=== PATIENT | male | born 1975 | race Caucasian/White ===

== ENCOUNTER → 2016-07-22 | Outpatient (CLI) | payer OTHER ==
--- NOTE | 2016-07-22 15:52 | XR ---
Lumbosacral spine HISTORY: Sciatica, radiculopathy 5 views of the lumbosacral spine No comparisons Lumbar vertebral bodies show spondylolysis at L5 which is possibly unilateral. Lumbar vertebral jennifer s show preserved height. Bone mineralization is maintained. Loss of disc height present at L4-5, L5-S 1. Sclerosis and posterior elements compatible with facet arthropathy. IMPRESSION: Spondylolysis L5, degenerative disc disease, consider lumbar MRI. Postop changes incident ally noted right hemipelvis.
== END | disposition home or self-care (01) ==
LOC: RADXRMAIN 10:37
PROVIDERS: ATTEND Physical Medicine & Rehabilitation
DX: M51.36 Other intervertebral disc degeneration, lumbar region (principal); M51.37 Other intervertebral disc degeneration, lumbosacral region; Z98.890 Other specified postprocedural states
CPT/HCPCS: 72110

== ENCOUNTER → 2019-09-20 | Outpatient (CLI) | payer BC ==
[2019-09-20 11:17] LABS: Basophils % (A) 1 %; Eosinophils # (A) 0.2 k/uL (0-0.7); Eosinophils % (A) 3 %; HCT 45.2 % (39.0-53.0); Lymphocytes # (A) 2.4 k/uL (1.0-4.8); Lymphocytes % (A) 27 %; MCH 30.9 pg (25.0-35.0); MCHC 33.2 g/dL (31.0-37.0); MCV 93.1 fL (80.0-100.0); Mean Platelet Volume 8.2; Monocytes # (A) 0.4 k/uL (0-1.0); Monocytes % (A) 5 %; Neutrophils # (A) 5.6 k/uL (1.3-7.7); Neutrophils % (A) 63 %; Platelet Count 254 k/uL (150-450); RBC 4.86 m/uL (4.30-5.90); RDW 13.2 % (11.5-15.5); WBC 8.9 k/uL (3.8-10.6)
[2019-09-20 16:13] LABS: % Iron Saturation 28.89 (15.00-50.00); African American GFR (CKD) 105.6 (60.0-200.0); Albumin 4.2 g/dL (3.80-4.90); Albumin/Globulin Ratio 1.68 (1.60-3.17); Anion Gap 11.2 mmol/L (4.00-12.00); Calcium 9.3 mg/dL (8.7-10.3); Carbon Dioxide 28.8 mmol/L (21.6-31.8); Chol/HDL Ratio 4.4; Globulin 2.5 g/dL (1.6-3.3); LDL Cholesterol,Calculated 85.8 mg/dL (0.0-131.0); Non-African American GFR(CKD) 91.1 (60.0-200.0); Potassium 4.6 mmol/L (3.5-5.5); Total Bilirubin 0.4 mg/dL (0.2-1.2); Total Protein 6.7 g/dL (6.2-8.2); Uric Acid 9.6 mg/dL (3.7-8.7); VLDL Calculation 57.2 mg/dL (5.00-40.00)
[2019-09-20 17:53] LABS: Hemoglobin A1C 8.2 % (4.0-6.0)
== END | disposition home or self-care (01) ==
LOC: LABWHC1 10:08
PROVIDERS: ATTEND Nurse Practitioner Adult Health
DX: G62.89 Other specified polyneuropathies (principal); R73.9 Hyperglycemia, unspecified; N52.9 Male erectile dysfunction, unspecified; E66.9 Obesity, unspecified; Z12.5 Encounter for screening for malignant neoplasm of prostate
CPT/HCPCS: 80061; 80053; 84443; 82607; 83540; 83550; 84550; 85025; 84402; 84403; 82306; 83036; 36415; G0103

== ENCOUNTER → 2019-09-20 | Outpatient (CLI) | payer BC ==
--- NOTE | 2019-09-20 10:23 | XR ---
EXAMINATION TYPE: XR ankle complete RT DATE OF EXAM: 09/20/2019 COMPARISON: NONE HISTORY: Pain FINDINGS: Three views of the ankle demonstrate the ankle mortise to be intact and symmetric. The joint spaces are preserved. The osseous structures are intact. There is a spur involving the Achilles tendon ximena ng the Achilles insertion and plantar surface. Soft tissue edema suggested. IMPRESSION: 1. No definite acute fracture or dislocation, if symptoms persist follow-up study in 7 to 10 days wou ld be suggested. 2. Soft tissue edema calcaneal spurring.
--- NOTE | 2019-09-20 10:25 | XR ---
EXAMINATION TYPE: XR foot complete RT DATE OF EXAM: 09/20/2019 COMPARISON: NONE HISTORY: Pain TECHNIQUE: Three views are submitted. FINDINGS: The osseous structures are intact. There is no acute fracture or dislocation. There is arthropathy of the first MTP joint with hypertrophic spurring and narrowing of the joint space. Calcaneal spurri ng noted.. IMPRESSION: 1. No acute fracture or dislocation. If symptoms persist, follow-up exam in 7 to 10 days could be ob tained. 2. Arthropathy first MTP joint. 3. Calcaneal spurring 4. Correlate for soft tissue edema
== END | disposition home or self-care (01) ==
LOC: RADXRMAIN 09:19
PROVIDERS: ATTEND Nurse Practitioner Adult Health
DX: M18.11 Unilateral primary osteoarthritis of first carpometacarpal joint, right hand (principal); M77.31 Calcaneal spur, right foot; M79.89 Other specified soft tissue disorders

== ENCOUNTER 2019-10-30 12:26 | Inpatient (IN) | payer BC ==
[2019-10-30] MEDS ORDERED: MORPHINE SULFATE 4 MG/ML SYRINGE IV STA (13:29)
[2019-10-30 13:30] LABS: Basophils % (A) 0 %; Eosinophils # (A) 0.3 k/uL (0-0.7); Eosinophils % (A) 3 %; HCT 50.7 % (39.0-53.0); HGB 16.3 gm/dL (13.0-17.5); Lymphocytes # (A) 2.3 k/uL (1.0-4.8); Lymphocytes % (A) 23 %; MCH 31.7 pg (25.0-35.0); MCHC 32.1 g/dL (31.0-37.0); Macrocytosis Slight; Monocytes # (A) 0.6 k/uL (0-1.0); Monocytes % (A) 6 %; Neutrophils # (A) 6.5 k/uL (1.3-7.7); Neutrophils % (A) 65 %; Platelet Count 223 k/uL (150-450); RBC 5.13 m/uL (4.30-5.90); RDW 14.8 % (11.5-15.5)
[2019-10-30 13:33] LABS: MCV 98.8 fL (80.0-100.0)
--- NOTE | 2019-10-30 13:39 | XR ---
EXAMINATION TYPE: XR chest 1V portable DATE OF EXAM: 10/30/2019 COMPARISON: NONE HISTORY: Suspected COVID-19 pneumonia TECHNIQUE: Single frontal view of the chest is obtained. FINDINGS: There is no focal air space opacity, pleural effusion, or pneumothorax seen. The cardiac silhouette size is within normal limits. The osseous structures are intact. IMPRESSION: 1. No definite infiltrate appreciated at this time. Strict clinical Correlation advised.
[2019-10-30 13:43] LABS: ALT 40 U/L (4-49); AST 31 U/L (17-59); African American GFR (CKD) >90 (>60 ml/min/1.73 sqM); Albumin 4.3 g/dL (3.5-5.0); Alkaline Phosphatase 58 U/L (38-126); Anion Gap 5 mmol/L; Blood Urea Nitrogen 9 mg/dL (9-20); C Reactive Protein 21.4 mg/L (<10.0); Calcium 8.9 mg/dL (8.4-10.2); Carbon Dioxide 36 mmol/L (22-30); Chloride 93 mmol/L (98-107); Glucose 281 mg/dL (74-99); Magnesium 1.7 mg/dL (1.6-2.3); Non-African American GFR(CKD) >90 (>60 ml/min/1.73 sqM); Potassium 4.3 mmol/L (3.5-5.1); Sodium 134 mmol/L (137-145); Total Bilirubin 0.6 mg/dL (0.2-1.3); Total Protein 7.5 g/dL (6.3-8.2)
--- NOTE | 2019-10-30 13:53 | ED ---
General Adult HPI - General Chief complaint: Dizziness Stated complaint: SOB, dizzy Time Seen by Provider: 10/30/19 12:28 Source: patient Mode of arrival: wheelchair Limitations: no limitations - History of Present Illness Initial comments: Dictation was produced using [employer] dictation software. please excuse any grammatical, word or spelling errors. This patient was cared for during a federal and state declared state of emergency secondary to Covid 19 Chief Complaint: 44-year-old male past medical history of diabetes, chronic pain presents with hypoxia History of Present Illness: 44-year-old male who states she's been feeling t ingly for the last 12 hours. He reports that his [id number] has a pulse oximeter and blood pressure cuff. Patient used these pieces of command and noticed that he was hypoxic in the 80s. Patient states he is not short of breath. Only reports that he feels tingly. Patient denies any fever, chills or night sweats. Denies any coughing. No abdominal symptoms. No overt contacts with anybody who had respiratory symptoms. Patient complains of chronic pain to his right foot. He states complain of some mild swelling in his right lower extremity. The ROS documented in this emergency department record has been reviewed and confirmed by me. Those systems with pertinent positive or negative responses have been documented in the HPI. All other systems are other negative and/or noncontributory. PHYSICAL EXAM: General Impression: Alert and oriented x3, not in acute distress, obese HEENT: Normocephalic atraumatic, extra-ocular movements intact, pupils equal and reactive to light bilaterally, mucous membranes moist. Cardiovascular: Heart regular rate and rhythm Chest: Able to complete full sentences, no retractions, no tachypnea Abdomen: Bowel sounds present, abdomen soft, non-tender, non-distended, no organomegaly Musculoskeletal: Pulses present and equal in all extremities, no peripheral edema Motor: no focal deficits noted Neurological: CN II-XII grossly intact, no focal motor or sensory deficits noted Skin: Intact with no visualized rashes Psych: Normal affect and mood ED course: 44-year-old male presents chief complaint of dizziness, paresthesias and hypoxia. As upon arrival shows heart rate of 113, oxygen saturation 86%, rest of vital signs within acceptable limits. Laboratory evaluation obtained. CBC unremarkable. Coag panel is unremarkable. D-dimer 0.48. No concern for PE or DVT at this time. Arterial blood gas was obtained. PH of 7.32, pCO2 of 67, pO2 of 66 with 21% FiO2, bicarbonate 35. Metabolic panel is unremarkable. There is a hyperglycemia of 281. Coronavirus is negative. Attempt was made to wean patient off of supplemental oxygen howev er he became hypoxic and. Clinical presentation concerning for hypoxic and hypercarbic respiratory failure. Clinical presentation suspicious for obesity hypoventilation syndrome. Patient will be admitted with consultation to pulmonology. EKG interpretation: Ventricular rate 106, sinus tachycardia, [place] interval 1:30, QRS 84, QTC 422. No [place] prolongation, no QTC prolongation, no ST or T-wave peraza es noted. . Overall, this EKG is unremarkable - Related Data Home Medications Medication Instructions Recorded Confirmed Allopurinol [Zyloprim] 100 mg PO DAILY 10/30/19 10/30/19 Ergocalciferol [Vitamin D2] 50,000 unit PO Q7D 10/30/19 10/30/19 Gabapentin 800 mg PO TID 10/30/19 10/30/19 Testosterone Cypionate 200 mg IM Q14D 10/30/19 10/30/19 [Depo-Testosterone] metFORMIN HCL [Glucophage] 500 mg PO AC-BID 10/30/19 10/30/19 Allergies Allergy/AdvReac Type Severity Reaction Status Date / Time vancomycin Allergy Rash/Hives Verified 10/30/19 14:29 Review of Systems ROS Statement: Those systems with pertinent positive or pertinent negative responses have been documented in the HPI. ROS Other: All systems not noted in ROS Statement are negative. Past Medical History Past Medical History: No Reported History Additional Past Surgical History / Comment(s): pelvis reconstruction and hip replacement Smoking Status: Light tobacco smoker Past Alcohol Use History: None Reported Past Drug Use History: None Reported General Exam Limitations: no limitations Course Vital Signs 10/30/19 10/30/19 10/30/19 12:29 13:50 14:00 Temperature 97.7 F Pulse Rate 113 H Respiratory 18 20 Rate Blood Pressure 121/60 O2 Sat by Pulse 86 L 86 L Oximetry Medical Decision Making - Lab Data Result diagrams: 10/30/19 13:07 10/30/19 13:07 Lab Results 10/30/19 10/30/19 10/30/19 Range/Units 13:07 13:07 13:07 WBC 10.0 (3.8-10.6) k/uL RBC 5.13 (4.30-5.90) m/uL Hgb 16.3 (13.0-17.5) gm/dL Hct 50.7 (39.0-53.0) % MCV 98.8 D (80.0-100.0) fL MCH 31.7 (25.0-35.0) pg MCHC 32.1 (31.0-37.0) g/dL RDW 14.8 (11.5-15.5) % Plt Count 223 (150-450) k/uL Neutrophils % 65 % Lymphocytes % 23 % Monocytes % 6 % Eosinophils % 3 % Basophils % 0 % Neutrophils # 6.5 (1.3-7.7) k/uL Lymphocytes # 2.3 (1.0-4.8) k/uL Monocytes # 0.6 (0-1.0) k/uL Eosinophils # 0.3 (0-0.7) k/uL Basophils # 0.0 (0-0.2) k/uL Macrocytosis Slight PT 9.8 (9.0-12.0) sec INR 0.9 (<1.2) APTT 23.4 (22.0-30.0) sec D-Dimer 0.48 (<0.60) mg/L FEU Sample Site ABG pH (7.35-7.45) ABG pCO2 (35-45) mmHg ABG pO2 (83-108) mmHg ABG HCO3 (21-25) mmol/L ABG Total CO2 (19-24) mmol/L ABG O2 Saturation (94-97) % ABG Base Excess mmol/L Redd Test FiO2 % Sodium 134 L (137-145) mmol/L Potassium 4.3 (3.5-5.1) mmol/L Chloride 93 L (98-107) mmol/L Carbon Dioxide 36 H (22-30) mmol/L Anion Gap 5 mmol/L BUN 9 (9-20) mg/dL Creatinine 0.85 (0.66-1.25) mg/dL Est GFR (CKD-EPI)AfAm >90 (>60 ml/min/1.73 sqM) Est GFR (CKD-EPI)NonAf >90 (>60 ml/min/1.73 sqM) Glucose 281 H (74-99) mg/dL Calcium 8.9 (8.4-10.2) mg/dL Magnesium 1.7 (1.6-2.3) mg/dL Total Bilirubin 0.6 (0.2-1.3) mg/dL AST 31 (17-59) U/L ALT 40 (4-49) U/L Alkaline Phosphatase 58 (38-126) U/L C-Reactive Protein 21.4 H (<10.0) mg/L Total Protein 7.5 (6.3-8.2) g/dL Albumin 4.3 (3.5-5.0) g/dL Coronavirus (PCR) (Not Detectd) 10/30/19 10/30/19 Range/Units 13:47 14:28 WBC (3.8-10.6) k/uL RBC (4.30-5.90) m/uL Hgb (13.0-17.5) gm/dL Hct (39.0-53.0) % MCV (80.0-100.0) fL MCH (25.0-35.0) pg MCHC (31.0-37.0) g/dL RDW (11.5-15.5) % Plt Count (150-450) k/uL Neutrophils % % Lymphocytes % % Monocytes % % Eosinophils % % Basophils % % Neutrophils # (1.3-7.7) k/uL Lymphocytes # (1.0-4.8) k/uL Monocytes # (0-1.0) k/uL Eosinophils # (0-0.7) k/uL Basophils # (0-0.2) k/uL Macrocytosis PT (9.0-12.0) sec INR (<1.2) APTT (22.0-30.0) sec D-Dimer (<0.60) mg/L FEU Sample Site rrad ABG pH 7.32 L (7.35-7.45) ABG pCO2 67 H (35-45) mmHg ABG pO2 66 L (83-108) mmHg ABG HCO3 35 H (21-25) mmol/L ABG Total CO2 37 H (19-24) mmol/L ABG O2 Saturation 92.3 L (94-97) % ABG Base Excess 8.3 mmol/L Redd Test Yes FiO2 21 % Sodium (137-145) mmol/L Potassium (3.5-5.1) mmol/L Chloride (98-107) mmol/L Carbon Dioxide (22-30) mmol/L Anion Gap mmol/L BUN (9-20) mg/dL Creatinine (0.66-1.25) mg/dL Est GFR (CKD-EPI)AfAm (>60 ml/min/1.73 sqM) Est GFR (CKD-EPI)NonAf (>60 ml/min/1.73 sqM) Glucose (74-99) mg/dL Calcium (8.4-10.2) mg/dL Magnesium (1.6-2.3) mg/dL Total Bilirubin (0.2-1.3) mg/dL AST (17-59) U/L ALT (4-49) U/L Alkaline Phosphatase (38-126) U/L C-Reactive Protein (<10.0) mg/L Total Protein (6.3-8.2) g/dL Albumin (3.5-5.0) g/dL Coronavirus (PCR) Not Detected (Not Detectd) Disposition Clinical Impression: Hypoxia Disposition: ADMITTED IP TO THIS HOSP Condition: Fair Referrals: Sony Bacon MD [Primary Care Provider] - 1-2 days Decision Time: 15:04
[2019-10-30 14:16] LABS: D-Dimer 0.48 mg/L FEU (<0.60); INR 0.9 (<1.2); Partial Thromboplastin Time 23.4 sec (22.0-30.0); Prothrombin Time 9.8 sec (9.0-12.0)
[2019-10-30 14:33] LABS: ABG Base Excess 8.3 mmol/L; ABG HCO3 35 mmol/L (21-25); ABG Oxygen Saturation 92.3 % (94-97); ABG PCO2 67 mmHg (35-45); ABG PH 7.32 (7.35-7.45); ABG PO2 66 mmHg (83-108); ABG TCO2 37 mmol/L (19-24); Allen Test Performed? Yes
[2019-10-30] MEDS ORDERED: NALOXONE 0.4 MG/ML 1 ML VIAL IV PRN (15:04)
[2019-10-30 17:02] LABS: Glucose,Whole Blood 254 mg/dL (75-99)
[2019-10-30] MEDS: INSULIN ASPART (NovoLOG) 100 UNIT/ML VIAL SQ SCH ×2 (17:22→20:10)
[2019-10-30] MEDS: SODIUM CHLORIDE 0.9% 1,000 ML IV SCH (17:23)
[2019-10-30] MEDS ORDERED: ACETAMINOPHEN TAB 325 MG TAB PO PRN (18:16)
[2019-10-30] MEDS ORDERED: NICOTINE POLACRILEX 2 MG GUM BUCCAL PRN (18:16)
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
[2019-10-30 20:02] LABS: Glucose,Whole Blood 234 mg/dL (75-99)
[2019-10-30] MEDS: GABAPENTIN 400 MG CAP PO SCH (20:05)
[2019-10-30] MEDS: ALLOPURINOL 100 MG TAB PO SCH (20:10)
[2019-10-31 06:19] LABS: Glucose,Whole Blood 198 mg/dL (75-99)
[2019-10-31] MEDS ORDERED: ALLOPURINOL 100 MG TAB PO SCH (09:00)
[2019-10-31] MEDS: ALLOPURINOL 100 MG TAB PO SCH (09:27)
[2019-10-31] MEDS: GABAPENTIN 400 MG CAP PO SCH ×3 (09:27→21:54)
--- NOTE | 2019-10-31 10:00 | ECHOF ---
Referral Reason:chf MEASUREMENTS -------- HEIGHT: 172.7 cm WEIGHT: 152.9 kg BP: 159/84 RVIDd: 3.6 cm (< 3.3) IVSd: 1.8 cm (0.6 - 1.1) LVIDd: 4.1 cm (3.9 - 5.3) LVPWd: 1.8 cm (0.6 - 1.1) IVSs: 2.6 cm LVIDs: 2.7 cm LVPWs: 2.5 cm LA Diam: 3.8 cm (2.7 - 3.8) Ao Diam: 3.9 cm (2.0 - 3.7) AV Cusp: 2.3 cm (1.5 - 2.6) MV EXCURSION: 17.722 mm (> 18.000) MV EF SLOPE: 64 mm/s (70 - 150) EPSS: 0.5 cm MV E Matt: 0.87 m/s MV DecT: 115 ms MV A Matt: 0.99 m/s MV E/A Ratio: 0.88 FINDINGS -------- Sinus rhythm. This was a technically difficult study with suboptimal views. The left ventricular size is normal. There is severe concentric left ventricular hypertrophy. Ove rall left ventricular systolic function is normal with, an EF between 55 - 60 %. The right ventricle is mildly enlarged. The left atrial size is normal. The right atrial size is normal. 5.0mg of Lumason was utilized for enhancement of images The aortic valve was not well visualized. The mitral valve is normal. No mitral regurgitation. The tricuspid valve was not well visualized. The pulmonic valve was not well visualized. The aortic root is mildy dilated. IVC Not well visulized. There is no pericardial effusion. CONCLUSIONS -------- 1. This was a technically difficult study with suboptimal views. 2. There is severe concentric left ventricular hypertrophy. 3. Overall left ventricular systolic function is normal with, an EF between 55 - 60 %. 4. The right ventricle is mildly enlarged. 5. The left atrial size is normal. 6. 5.0mg of Lumason was utilized for enhancement of images 7. The tricuspid valve was not well visualized. 8. The pulmonic valve was not well visualized. 9. The aortic root is mildy dilated. SCHOOL CROSSING GUARD: Shira Fraser [facility]
[2019-10-31 11:43] LABS: Glucose,Whole Blood 181 mg/dL (75-99)
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
[2019-10-31] MEDS: INSULIN ASPART (NovoLOG) 100 UNIT/ML VIAL SQ SCH ×4 (12:51→21:54)
[2019-10-31 16:35] LABS: Glucose,Whole Blood 178 mg/dL (75-99)
--- NOTE | 2019-10-31 16:55 | P.PN ---
Subjective Progress Note Date: 10/31/19 Principal diagnosis: Hypoxia Patient is a 44-year-old obese male who presented with hypoxia. He has a history of diabetes type 2 neuropathy is noted to be tachycardic with a pulse of 113 hypoxic 86% on room air. Chest x-ray was negative EKG with normal sinus rhythm patient had an echocardiogram he was seen by cardiology, likely secondary to pickwickian syndrome Objective - Vital Signs Vital signs: Vital Signs Temp 97.7 F 10/31/19 08:00 Pulse 92 10/31/19 16:00 Resp 20 10/31/19 16:00 BP 95/68 10/31/19 12:00 Pulse Ox 96 10/31/19 12:00 Intake & Output 10/30/19 10/31/19 10/31/19 18:59 06:59 18:59 Intake Total 240 222 Balance 240 222 Weight 174.633 kg 153 kg Intake: Oral 240 222 Other: # Voids 1 2 # Bowel Movements 1 - Constitutional General appearance: Present: obese - Respiratory Respiratory: bilateral: CTA - Cardiovascular Rhythm: regular - Gastrointestinal General gastrointestinal: Present: normal bowel sounds - Labs CBC & Chem 7: 10/30/19 13:07 10/30/19 13:07 Labs: Abnormal Lab Results - Last 24 Hours (Table) 10/30/19 10/30/19 10/31/19 Range/Units 16:35 20:01 06:15 POC Glucose (mg/dL) 254 H 234 H 198 H (75-99) mg/dL 10/31/19 10/31/19 Range/Units 11:42 16:33 POC Glucose (mg/dL) 181 H 178 H (75-99) mg/dL Assessment and Plan (1) Hypoxia Narrative/Plan: Ayse secondary to pickwickian syndrome, echocardiogram was reviewed, pulmonary notes and input was reviewed, patient will likely need oxygen at home and try to wean oxygen and check room air saturations in a.m. Current Visit: Yes Status: Acute Code(s): R09.02 - HYPOXEMIA SNOMED Code(s): 225635345 (2) Diabetes Narrative/Plan: Continue home regiment and sliding scale coverage Current Visit: Yes Status: Acute Code(s): E11.9 - TYPE 2 DIABETES MELLITUS WITHOUT COMPLICATIONS SNOMED Code(s): 22539048 Plan: Check saturations and plan for home exam
[2019-10-31] MEDS: SODIUM CHLORIDE 0.9% 1,000 ML IV SCH (17:32)
[2019-10-31] MEDS: metFORMIN 500 MG TAB PO SCH (17:33)
[2019-10-31 17:45] VITALS: RESP 18
[2019-10-31 20:49] LABS: Glucose,Whole Blood 241 mg/dL (75-99)
[2019-11-01 05:53] LABS: Glucose,Whole Blood 174 mg/dL (75-99)
[2019-11-01] MEDS: INSULIN ASPART (NovoLOG) 100 UNIT/ML VIAL SQ SCH (06:31)
[2019-11-01] MEDS: metFORMIN 500 MG TAB PO SCH (06:35)
[2019-11-01 09:29] VITALS: BP 118/86; PULSE 114; TEMP 98.1
[2019-11-01] MEDS: GABAPENTIN 400 MG CAP PO SCH (09:36)
[2019-11-01] MEDS: ALLOPURINOL 100 MG TAB PO SCH (09:36)
[2019-11-01 11:18] LABS: Glucose,Whole Blood 190 mg/dL (75-99)
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
--- NOTE | 2019-11-01 16:32 | P.DS ---
Providers Date of admission: 10/30/19 15:04 Attending physician: Sarah Horvath DO Consults: 10/30/19 14:43 Consult Physician Routine Consulting Provider: Reji Jimenes Consult Reason/Comments: hypoxic repsiratory failure Do you want consulting provider notified?: Yes Primary care physician: Sony Bacon - Discharge Diagnosis(es) (1) Hypoxia Secondary to pickwickian syndrome patient was seen by pulmonary and patient is advised to use his CPAP at home discussed oxygen was hypoxic with ambulation Status: Acute (2) Diabetes Continue outpatient regiment Status: Acute Hospital Course: Patient is status post 44-year-old male history of diabetes type 2 morbid obesity was seen and found to be tachycardic with a pulse of 113 and hypoxic O2 sat 86% on room air. Patient had normal CBC, CRP was slightly elevated glucose of 81 sodium 134 chloride of 93. ABG showed pH of 7.32 pCO2 67 and a pO2 of 66 patient had global testing which were negative. Chest x-ray showed no definitive infiltrate. EKG showed normal sinus rhythm patient remained comfortable and plans for discharge to home time 35 minutes Patient Condition at Discharge: Fair Plan - Discharge Summary Discharge Rx Participant: No New Discharge Prescriptions: No Action metFORMIN HCL [Glucophage] 500 mg PO AC-BID Testosterone Cypionate [Depo-Testosterone] 200 mg IM Q14D Gabapentin 800 mg PO TID Ergocalciferol [Vitamin D2] 50,000 unit PO Q7D Allopurinol [Zyloprim] 100 mg PO DAILY Discharge Medication List Allopurinol [Zyloprim] 100 mg PO DAILY 10/30/19 [History] Ergocalciferol [Vitamin D2] 50,000 unit PO Q7D 10/30/19 [History] Gabapentin 800 mg PO TID 10/30/19 [History] Testosterone Cypionate [Depo-Testosterone] 200 mg IM Q14D 10/30/19 [History] metFORMIN HCL [Glucophage] 500 mg PO AC-BID 10/30/19 [History] Follow up Appointment(s)/Referral(s): [facility] [NON-STAFF] - As Needed Reji Jimenes DO [Doctor of Osteopathic Medicine] - 4 Weeks Sony Bacon MD [Primary Care Provider] - 1-2 days Patient Instructions/Handouts: Pulse Oximetry (DC), Shortness of Breath (DC) Discharge Disposition: HOME SELF-CARE
[2019-11-04] MEDS ORDERED: TESTOSTERONE CYPIONATE 200 MG/ML 1ML VIAL IM SCH (09:00)
[2019-11-04] MEDS ORDERED: ERGOCALCIFEROL 50,000 UNIT CAP PO SCH (09:00)
--- NOTE | 2019-11-04 14:37 | CDI ---
Documentation Clarification Form Date: 11/04/19 From: Asha Dennis CCS Phone: If you have a question about this query, please contact Tamra Joseph, Sonar Subsystem Equipment Operator at [phone] between 8am and 5pm. Admit Date: 10/30/19 Discharge Date:11/01/19 Patient Name: Flynn Solis Visit Number: [id number] ATTENTION: The Clinical Documentation Specialists (CDI) and [facility] Coding Staff appreciate your assistance in clarifying documentation. Please respond to the clarification below the line at the bottom and electronically sign. The CDI & [facility] Coding staff will review the response and follow-up if needed. Please note: Queries are made part of the Legal Health Record. If you have any questions, please contact the author of this message via ITS. Dear Dr. Lundberg, The diagnosis acute on chronic hypercapnic and hypoxemic respiratory failure was documented in the Consult and PNs, but is not noted in subsequent documentation. History/Risk Factors: Morbid obesity/Pickwickian syndrome, COPD w/ Exac, DM, Smoker Clinical Indicators: Tachycardia, Hypoxia Vital Signs: BP 121/60, RR 20, OH 113, O2 Sat 86 ABG: pH 7.32 , PO2 66, pCO2 67 Treatment: BIPAP, O2 Nasal Cannula 2 lpm In your professional opinion, can you please clarify if these findings signify one of the following conditions? Acute and chronic hypercapnic and hypoxic respiratory failure Acute hypercapnic and hypoxic respiratory failure Chronic hypercapnic and hypoxic respiratory failure Hypercapnia with hypoxia Other, please specify Clinically unable to determine Acute and chronic hypercarbic and hypoxic respiratory failure secondary to morbid obesity, Pickwickian syndrome MTDD
== END 2019-11-01 12:13 | disposition home or self-care (01) | DRG 205 ==
LOC: EC 12:26 → 3SCARD 15:04
PROVIDERS: ADMIT Internal Medicine; ATTEND Internal Medicine
DX: E66.2 Morbid (severe) obesity with alveolar hypoventilation (principal); J96.21 Acute and chronic respiratory failure with hypoxia; J96.22 Acute and chronic respiratory failure with hypercapnia; Z68.43 Body mass index [BMI] 50.0-59.9, adult; J44.1 Chronic obstructive pulmonary disease with (acute) exacerbation; Z20.828 Contact with and (suspected) exposure to other viral communicable diseases; E11.40 Type 2 diabetes mellitus with diabetic neuropathy, unspecified; G89.4 Chronic pain syndrome; E11.65 Type 2 diabetes mellitus with hyperglycemia; R00.0 Tachycardia, unspecified; M10.9 Gout, unspecified; F17.210 Nicotine dependence, cigarettes, uncomplicated; M19.071 Primary osteoarthritis, right ankle and foot; Z96.641 Presence of right artificial hip joint; E55.9 Vitamin D deficiency, unspecified; E29.1 Testicular hypofunction; D75.1 Secondary polycythemia; I87.8 Other specified disorders of veins; Z53.29 Procedure and treatment not carried out because of patient's decision for other reasons; Z79.899 Other long term (current) drug therapy; Z79.84 Long term (current) use of oral hypoglycemic drugs; Z87.828 Personal history of other (healed) physical injury and trauma; Z98.890 Other specified postprocedural states; Z91.19 Patient's noncompliance with other medical treatment and regimen; Z88.1 Allergy status to other antibiotic agents; Z82.5 Family history of asthma and other chronic lower respiratory diseases
CPT/HCPCS: 36415; 36600; 71045; 80053; 82805; 83735; 83880; 84484; 85025; 85379; 85610; 85730; 86140; 87635; 93005; 93306; 99285

== ENCOUNTER → 2020-02-10 | Outpatient (CLI) | payer BC ==
[2020-02-10 08:16] LABS: Basophils # (A) 0.1 k/uL (0-0.2); Basophils % (A) 1 %; Eosinophils # (A) 0.3 k/uL (0-0.7); Eosinophils % (A) 3 %; HGB 17.5 gm/dL (13.0-17.5); Hypochromasia Marked; Lymphocytes # (A) 2.3 k/uL (1.0-4.8); Lymphocytes % (A) 25 %; MCH 29.6 pg (25.0-35.0); MCHC 30.9 g/dL (31.0-37.0); MCV 95.7 fL (80.0-100.0); Mean Platelet Volume 7.9; Monocytes # (A) 0.6 k/uL (0-1.0); Monocytes % (A) 6 %; Neutrophils # (A) 5.9 k/uL (1.3-7.7); Neutrophils % (A) 62 %; Platelet Count 217 k/uL (150-450); RDW 14.1 % (11.5-15.5); WBC 9.5 k/uL (3.8-10.6)
[2020-02-10 08:26] LABS: HCT 56.5 % (39.0-53.0)
[2020-02-10 12:34] LABS: African American GFR (CKD) 94.1 (60.0-200.0); Albumin/Globulin Ratio 1.6 (1.60-3.17); Anion Gap 6.6 mmol/L (4.00-12.00); Calcium 9.1 mg/dL (8.7-10.3); Carbon Dioxide 31.4 mmol/L (21.6-31.8); Chol/HDL Ratio 4.85; Globulin 2.5 g/dL (1.6-3.3); LDL Cholesterol,Calculated 97.6 mg/dL (0.0-131.0); Non-African American GFR(CKD) 81.2 (60.0-200.0); Potassium 4.7 mmol/L (3.5-5.5); Total Bilirubin 0.5 mg/dL (0.2-1.2); Total Protein 6.5 g/dL (6.2-8.2); Uric Acid 8.5 mg/dL (3.7-8.7); VLDL Calculation 29.4 mg/dL (5.00-40.00)
[2020-02-10 15:16] LABS: Hemoglobin A1C 8.7 % (4.0-6.0)
== END | disposition home or self-care (01) ==
LOC: LABWHC1 07:15
PROVIDERS: ATTEND Internal Medicine
DX: E78.2 Mixed hyperlipidemia (principal); E11.69 Type 2 diabetes mellitus with other specified complication; M10.00 Idiopathic gout, unspecified site; G62.89 Other specified polyneuropathies
CPT/HCPCS: 36415; 80053; 80061; 82306; 83036; 84443; 84550; 85025

== ENCOUNTER → 2021-07-28 | Outpatient (CLI) | payer BC ==
--- NOTE | 2021-07-29 09:51 | XR ---
EXAMINATION TYPE: XR chest 2V DATE OF EXAM: 07/28/2021 COMPARISON: NONE TECHNIQUE: PA and lateral views submitted. HISTORY: Pain FINDINGS: The lungs are clear and there is no pneumothorax, pleural effusion, or focal pneumonia. Mild hyperi nflation. Metallic density adjacent to the right humerus could be artifactual versus chronic foreign body. Hypertrophic and degenerative change of the spine. IMPRESSION: 1. No acute process. 2. Correlate for COPD
--- NOTE | 2021-07-29 09:52 | XR ---
EXAMINATION TYPE: XR ribs RT DATE OF EXAM: 07/28/2021 COMPARISON: NONE HISTORY: Pain TECHNIQUE: 4 views submitted FINDINGS: Osseous structures intact. No acute displaced rib IMPRESSION: No acute displaced rib fracture
== END | disposition home or self-care (01) ==
LOC: RADXRMAIN 16:20
PROVIDERS: ATTEND Family Medicine
DX: R07.9 Chest pain, unspecified (principal); R07.81 Pleurodynia; Z87.828 Personal history of other (healed) physical injury and trauma
CPT/HCPCS: 71046

== ENCOUNTER → 2021-08-19 | Outpatient (CLI) | payer BC ==
--- NOTE | 2021-08-19 07:58 | US ---
EXAMINATION TYPE: US abdomen complete DATE OF EXAM: 08/19/2021 COMPARISON: NONE CLINICAL HISTORY: 46-year-old male R10.84 abd pain. No pain. When standing, patient states right fla nk abdomen appears visually larger than the left flank. No palpable at area of concern. TECHNIQUE: Multiple sonographic images of the abdomen are obtained. FINDINGS: FINDINGS: EXAM MEASUREMENTS: Liver Length: 16.4 cm Gallbladder Wall: 0.2 cm CBD: 0.2 cm Spleen: 10.1 cm Right Kidney: 11.7 x 6.2 x 6.1 cm Left Kidney: 10.5 x 5.9 x 5.3 cm Pancreas: Bowel gas shadowing obscures the pancreatic head and tail. Visualized body shows no gross abnormality. Liver: No focal lesion. Gallbladder: wnl, junctional folds seen in the LLD position. Evidence for sonographic Ambrose's sign: neg CBD: wnl Spleen: wnl Right Kidney: No hydronephrosis or evident masses seen Left Kidney: No hydronephrosis or evident masses seen Upper IVC: Obscured by overlying bowel gas Abd Aorta: Proximal and mid obscured by overlying bowel gas Auto Glass Technician note: Area of concern scanned at right flank: No discrete abnormality visualized. Contr alateral images taken for comparison purposes. IMPRESSION: 1. Suboptimal visualization of portions of the pancreas. Otherwise, unremarkable sonographic examinat ion of the abdomen. 2. Additional targeted scanning along the right flank at the area of patient reported visual fullness . No discrete abnormality is seen here by ultrasound.
== END | disposition home or self-care (01) ==
LOC: RADUSWWP 06:56
PROVIDERS: ATTEND Family Medicine
DX: R10.84 Generalized abdominal pain (principal)
CPT/HCPCS: 76700

== ENCOUNTER 2021-09-25 21:50 | Emergency (ER) | payer BC ==
[2021-09-25 21:55] VITALS: BP 130/80; PULSE 79; RESP 20; TEMP 98.9
--- NOTE | 2021-09-25 22:51 | XR ---
EXAMINATION TYPE: XR finger RT DATE OF EXAM: 09/25/2021 COMPARISON: NONE HISTORY: Pain TECHNIQUE: 3 views FINDINGS: There is a nondisplaced transverse fracture through the midshaft of the distal phalanx of t he right thumb. There is no dislocation. The MP joint is intact IMPRESSION: Nondisplaced fracture of the distal phalanx of the right thumb.
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
== END 2021-09-25 23:12 | disposition home or self-care (01) ==
LOC: EC 21:50
DX: S62.524A Nondisplaced fracture of distal phalanx of right thumb, initial encounter for closed fracture (principal); E11.9 Type 2 diabetes mellitus without complications; F17.200 Nicotine dependence, unspecified, uncomplicated; Z79.84 Long term (current) use of oral hypoglycemic drugs; Z88.1 Allergy status to other antibiotic agents; Z96.641 Presence of right artificial hip joint; W23.1XXA Caught, crushed, jammed, or pinched between stationary objects, initial encounter
CPT/HCPCS: 99283

== ENCOUNTER → 2021-09-28 | Outpatient (CLI) | payer BC ==
--- NOTE | 2021-09-29 08:26 | CT ---
EXAMINATION TYPE: CT abdomen pelvis wo con DATE OF EXAM: 09/28/2021 COMPARISON: CT pelvis 02/21/2016 HISTORY: right side pain, noted bulge on right side CT DLP: 866.9 mGycm Automated exposure control for dose reduction was used. TECHNIQUE: Helical acquisition of images from the lung bases through the pelvis. Patient received or al contrast FINDINGS: Lack of intravenous contrast could compromise sensitivity. There is a posterior lateral rig ht abdominal hernia containing colon which extends into the subcutaneous tissue LUNG BASES: No significant abnormality is appreciated. AORTA: No significant abnormality is appreciataed. LIVER/GB: No significant abnormality is appreciated. PANCREAS: No significant abnormality is seen. SPLEEN: No significant abnormality is seen. ADRENALS: No significant abnormality is seen. KIDNEYS: No significant abnormality is seen. REPRODUCTIVE ORGANS: No significant abnormality is seen. URINARY BLADDER: No significant abnormality is seen. BOWEL: No significant abnormality is seen. FREE AIR: No Free Air is visible. ASCITES: None visible. PELVIC ADENOPATHY: None visualized. RETROPERITONEAL ADENOPATHY: No Retroperitoneal Adenopathy visible. OSSEOUS STRUCTURES: No significant abnormality is seen, postop hip on the right, metallic density ca uses some streak artifact. IMPRESSION: THERE IS A RIGHT FLANK HERNIA NOTED ON PRIOR EXAM NOW CONTAINING CONTAINING COLON
== END | disposition home or self-care (01) ==
LOC: RADCTMAIN 09-16 17:27
PROVIDERS: ATTEND Family Medicine
DX: K46.9 Unspecified abdominal hernia without obstruction or gangrene (principal)
CPT/HCPCS: 74176

== ENCOUNTER → 2022-10-12 | Outpatient (CLI) | payer BC ==
[2022-10-12 18:03] LABS: Basophils # (A) 0.04 X 10*3/uL (0.00-0.10); Basophils % (A) 0.6 %; Eosinophils # (A) 0.18 X 10*3/uL (0.04-0.35); Eosinophils % (A) 2.7 %; HCT 47.2 % (39.6-50.0); HGB 15.3 g/dL (13.0-17.0); Immature Grans, Automated 0 %; Lymphocytes # (A) 2.66 X 10*3/uL (0.90-5.00); Lymphocytes % (A) 39.2 %; MCH 30.7 pg (27.0-32.0); MCHC 32.4 g/dL (32.0-37.0); MCV 94.8 fL (80.0-97.0); Mean Platelet Volume 10.5 fL (9.5-12.2); Monocytes % (A) 8.8 %; NRBC Per 100 WBC 0 /100 WBCS (0.0-0.0); Neutrophils # (A) 3.31 X 10*3/uL (1.80-7.70); Neutrophils % (A) 48.7 %; Platelet Count 208 X 10*3/uL (140-440); RBC 4.98 X 10*6/uL (4.40-5.60); RDW 12.3 % (11.5-14.5); WBC 6.79 X 10*3/uL (4.50-10.00)
[2022-10-12 18:58] LABS: African American GFR (CKD) 88.3 (60.0-200.0); Albumin 4.5 g/dL (3.8-4.9); Albumin/Globulin Ratio 1.85 (1.60-3.17); Anion Gap 10.2 mmol/L (10.00-18.00); BUN/Creat Ratio 18.33 Ratio (12.00-20.00); Blood Urea Nitrogen 20.9 mg/dL (9.0-27.0); Calcium 9.9 mg/dL (8.7-10.3); Carbon Dioxide 27.3 mmol/L (20.0-27.5); Globulin 2.4 g/dL (1.6-3.3); Non-African American GFR(CKD) 76.2 (60.0-200.0); Potassium 4.6 mmol/L (3.5-5.5); Total Bilirubin 0.3 mg/dL (0.30-1.20)
== END | disposition home or self-care (01) ==
LOC: LABWHC1 11:27
PROVIDERS: ATTEND Surgery
DX: Z01.812 Encounter for preprocedural laboratory examination (principal)
CPT/HCPCS: 36415; 80053; 80323; 82306; 83036; 85025

== ENCOUNTER 2022-10-17 12:37 | Day surgery (SDC) | payer BC ==
[2022-10-13 14:34] VITALS: BMI 36.0
[2022-10-17] MEDS ORDERED: LACTATED RINGERS 1,000 ML IV ONE (13:15)
[2022-10-17 13:19] VITALS: TEMP 98
[2022-10-17] MEDS ORDERED: PROPOFOL 10 MG/ML 20 ML VIAL IV ONE (14:20)
[2022-10-17] MEDS ORDERED: LIDOCAINE 2% INJ 20 MG/ML (2 ML VIAL) ONE (14:20)
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
--- NOTE | 2022-10-17 14:37 | P.OP ---
Date of Procedure: 10/17/22 Preoperative Diagnosis: Family History of colon cancer Postoperative Diagnosis: Diverticulosis Procedure(s) Performed: Colonoscopy Anesthesia: MAC Surgeon: Aurelio Monson Pathology: none sent Condition: stable Disposition: PACU Description of Procedure: Patient's placed on the endoscopy table in the lateral position. He received IV sedation. It'll rectal exam was performed. This revealed no ebonized. The possible colonoscope was then placed patient anus and passed rotator entire colon. The ileocecal valve was visualized. The cecum, ascending and transverse colon appeared normal. In the descending; there is mild diverticular changes. Scope summer back the rectum this appeared normal. Scope withdrawn for patient.
[2022-10-17 14:42] VITALS: RESP 16
[2022-10-17 14:59] VITALS: BP 102/70; PULSE 60
== END 2022-10-17 15:24 | disposition home or self-care (01) ==
LOC: ORWHC2ENDO 12:37
PROVIDERS: ATTEND Surgery
DX: Z12.11 Encounter for screening for malignant neoplasm of colon (principal); K57.30 Diverticulosis of large intestine without perforation or abscess without bleeding; E11.9 Type 2 diabetes mellitus without complications; M19.90 Unspecified osteoarthritis, unspecified site; Z87.891 Personal history of nicotine dependence; Z80.0 Family history of malignant neoplasm of digestive organs; Z88.1 Allergy status to other antibiotic agents; Z82.5 Family history of asthma and other chronic lower respiratory diseases; F10.90 Alcohol use, unspecified, uncomplicated
CPT/HCPCS: 45378; J2704; J2001

== ENCOUNTER → 2024-10-07 | Outpatient (CLI) | payer OTHER ==
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
== END | disposition home or self-care (01) ==
LOC: RADCTMAIN 16:12
PROVIDERS: ATTEND Family Medicine
DX: R22.1 Localized swelling, mass and lump, neck (principal)
CPT/HCPCS: 70491; Q9967